=== PATIENT | male | born 1945 | race African-American/Black ===

== ENCOUNTER 2023-08-24 16:47 | Inpatient (IN) | payer OTHER ==
[~2023-08-24] VITALS: Ht 182.9 cm; Wt 74.8 kg
[2023-08-24 16:56] VITALS: BP_SYST 142; PULSE 91; RESP 18; TEMP 98; O2SAT 98
[2023-08-24 18:02] LABS: BASOPHILS % (AUTO) 0.1 % (0.0-2.0); HEMOGLOBIN 16.1 g/dL (14.0-18.0); LYMPHOCYTES # (AUTO) 0.6 K/uL (1.0-5.5); LYMPHOCYTES % (AUTO) 4.3 % (20.5-51.5); MEAN CORPUSCULAR HEMOGLOBIN 30 pg (27-31); MEAN CORPUSCULAR HGB CONC 32 % (32-36); MEAN CORPUSCULAR VOLUME 92 fL (79.0-98.0); MONOCYTES # (AUTO) 1.2 K/uL (0.0-1.0); MONOCYTES % (AUTO) 8.6 % (1.7-9.3); NEUTROPHILS # (AUTO) 12.5 K/uL (1.8-7.7); RED BLOOD CELL COUNT(AUTO) 5.44 MIL/uL (4.2-6.2); RED CELL DISTRIBUTION WIDTH 15.2 % (9.0-15.0); WHITE BLOOD COUNT (AUTO) 14.4 K/uL (4.8-10.8)
[2023-08-24 18:08] LABS: PLATELET COUNT (AUTO) 196 K/uL (130-430)
[2023-08-24 18:13] LABS: ANION GAP 14 (5-15); CALCIUM 8.9 mg/dL (8.4-11.0); CARBON DIOXIDE 23 mmol/L (23-29); CHLORIDE 101 mmol/L (98-107); CREATININE 2.57 mg/dL (0.55-1.30); GLUCOSE 115 mg/dL (74-106); POTASSIUM 4.1 mmol/L (3.5-5.1); SODIUM SERUM 138 mmol/L (136-145); UREA NITROGEN, BLOOD 53 mg/dL (8-21)
[2023-08-24 18:17] LABS: ALANINE AMINOTRANSFERASE 7 U/L (12-78); ALBUMIN 3.1 g/dL (3.4-4.8); ASPARTATE AMINOTRANSFERASE 22 U/L (10-37); LIPASE 16 U/L (73-393); TOTAL BILIRUBIN 2.1 mg/dL (0.0-1.0); TOTAL PROTEIN, SERUM 7.1 g/dL (6.4-8.3)
[2023-08-24] MEDS ORDERED: MORPHINE 4 MG INJ. 4 MG/ML VIAL IVP ONE (19:00)
[2023-08-24] MEDS ORDERED: PIPERACILLIN/TAZO 3.375 GM in NS 50 ML IV ONE (20:15)
[2023-08-24] MEDS ORDERED: NACL 0.9% 2,000 ML IV ONE (20:15)
[2023-08-24] MEDS ORDERED: PIPERACILLIN/TAZOBACTAM 3.375 GM/VIAL (ZOSYN) IV ONE ×2 (20:24→20:25)
[2023-08-24] MEDS ORDERED: PRO40 PO (20:43)
[2023-08-24] MEDS ORDERED: ASA81 PO (20:43)
[2023-08-24] MEDS ORDERED: CARB1TAB33 PO (20:43)
[2023-08-24] MEDS ORDERED: CYAN250010 PO (20:43)
[2023-08-24] MEDS ORDERED: MIRT-91 PO (20:43)
[2023-08-24 21:13] LABS: BILIRUBIN,URINE NEGATIVE (NEGATIVE); BLOOD, URINE 3+ (NEGATIVE); CLARITY/URINE Clear (CLEAR); COLOR,URINE YELLOW (YELLOW); GLUCOSE,URINE NEGATIVE (NEGATIVE); KETONES,URINE NEGATIVE (NEGATIVE); LEUKOCYTE ESTERASE ,URINE 3+ (NEGATIVE); NITRITE, URINE POSITIVE (NEGATIVE); PROTEIN URINE 1+ (NEGATIVE); UROBILINOGEN,URINE 0.2 (0.2-1.0)
[2023-08-24 21:21] LABS: BACTERIA,URINE MODERATE /HPF (None Seen)
[2023-08-25] MEDS ORDERED: MORPHINE 4 MG INJ. 4 MG/ML VIAL IVP PRN
[2023-08-25] MEDS ORDERED: TAMSULOSIN HCL 0.4 MG CAP PO ONE (08:15)
[2023-08-25 16:26] VITALS: BP_SYST 146; PULSE 74; RESP 18; TEMP 97.6; O2SAT 98
[2023-08-25 16:50] VITALS: BP_SYST 127; PULSE 78; RESP 17; TEMP 97.6
[2023-08-25] MEDS ORDERED: ONDANSETRON HCL 4 MG/2 ML VIAL IVP PRN ×2 (17:45)
[2023-08-25] MEDS ORDERED: NON-FORMULARY MEDICATION (Cyanocobalamin (Vitamin B-12) (Vitamin B12) 1,000 MCG) PO SCH (17:45)
[2023-08-25] MEDS ORDERED: NALOXONE HCL 0.4 MG/ML AMP (NARCAN) IVP PRN ×2 (17:45)
[2023-08-25] MEDS ORDERED: ACETAMINOPHEN 325 MG TABLET PO PRN ×2 (17:45→18:00)
[2023-08-25] MEDS ORDERED: LORazepam 2 MG/ML VIAL IVP PRN (17:45)
[2023-08-25] MEDS ORDERED: HYDROcodone/ACETAMIN 10-325 MG TAB PO PRN (17:45)
[2023-08-25] MEDS ORDERED: HYDROcodone/ACETAMIN 5-325 MG TAB (NORCO/ VICODIN) PO PRN (17:45)
[2023-08-25] MEDS ORDERED: ASPIRIN 81 MG TAB.CHEW PO ONE (18:00)
[2023-08-25] MEDS ORDERED: PIPERACILLIN/TAZO 3.375/DEX-IS 50 ML IV SCH (18:00)
[2023-08-25] MEDS ORDERED: PANTOPRAZOLE SODIUM 40 MG TAB PO ONE (18:15)
[2023-08-25] MEDS ORDERED: CYANOCOBALAMIN (VITAMIN B-12) 1,000 MCG TABLET PO ONE (18:15)
[2023-08-25 19:30] VITALS: O2SAT 95
[2023-08-25 20:00] VITALS: BP_SYST 149; PULSE 75; RESP 20; TEMP 98.8; O2SAT 95
[2023-08-25] MEDS: MIRTAZAPINE 15 MG TABLET PO SCH (20:47)
[2023-08-25] MEDS: CARBIDOPA/LEVODOPA 25/100 MG TABLET PO SCH (20:47)
[2023-08-25] MEDS: PIPERACILLIN/TAZOBACTAM 2.25 GM/ D5W 50 ML IV SCH ×2 (23:25)
[2023-08-26] VITALS (7 sets, daily range): BP systolic 109–171; PULSE 64–71; RESP 16–18; TEMP 96.9–98.2; O2SAT 96–98
[2023-08-26] MEDS: PIPERACILLIN/TAZOBACTAM 2.25 GM/ D5W 50 ML IV SCH ×2 (05:15)
[2023-08-26 06:34] LABS: BASOPHILS % (AUTO) 0.3 % (0.0-2.0); EOSINOPHILS # (AUTO) 0.2 K/uL (0.0-0.4); EOSINOPHILS % (AUTO) 2.7 % (0.0-4.0); HEMATOCRIT 44.6 % (36-54); HEMOGLOBIN 14.7 g/dL (14.0-18.0); LYMPHOCYTES # (AUTO) 0.8 K/uL (1.0-5.5); LYMPHOCYTES % (AUTO) 10.5 % (20.5-51.5); MEAN CORPUSCULAR HEMOGLOBIN 30 pg (27-31); MEAN CORPUSCULAR HGB CONC 33 % (32-36); MEAN CORPUSCULAR VOLUME 91 fL (79.0-98.0); MONOCYTES # (AUTO) 0.7 K/uL (0.0-1.0); NEUTROPHILS # (AUTO) 5.9 K/uL (1.8-7.7); NEUTROPHILS % (AUTO) 77.5 % (40.0-70.0); PLATELET COUNT (AUTO) 172 K/uL (130-430); RED BLOOD CELL COUNT(AUTO) 4.89 MIL/uL (4.2-6.2); RED CELL DISTRIBUTION WIDTH 15.3 % (9.0-15.0); WHITE BLOOD COUNT (AUTO) 7.6 K/uL (4.8-10.8)
[2023-08-26] MEDS ORDERED: cloNIDine HCL 0.2 MG TABLET PO PRN (06:45)
[2023-08-26 07:02] LABS: ANION GAP 9 (5-15); CALCIUM 8.5 mg/dL (8.4-11.0); CARBON DIOXIDE 25 mmol/L (23-29); CHLORIDE 110 mmol/L (98-107); CREATININE 1.75 mg/dL (0.55-1.30); GLUCOSE 74 mg/dL (74-106); PHOSPHORUS 3.5 mg/dL (2.7-4.5); POTASSIUM 3.4 mmol/L (3.5-5.1); SODIUM SERUM 144 mmol/L (136-145); UREA NITROGEN, BLOOD 46 mg/dL (8-21)
[2023-08-26] MEDS: PANTOPRAZOLE SODIUM 40 MG TAB PO SCH (08:31)
[2023-08-26] MEDS: ASPIRIN 81 MG TAB.CHEW PO SCH (08:31)
[2023-08-26] MEDS: TAMSULOSIN HCL 0.4 MG CAP PO SCH (08:31)
[2023-08-26] MEDS: CYANOCOBALAMIN (VITAMIN B-12) 1,000 MCG TABLET PO SCH (08:34)
[2023-08-26] MEDS: CARBIDOPA/LEVODOPA 25/100 MG TABLET PO SCH ×3 (09:15→21:15)
[2023-08-26] MEDS: metroNIDAZOLE 250 mg/NS 50 ML IV SCH ×2 (13:24→21:15)
[2023-08-26] MEDS: MIRTAZAPINE 15 MG TABLET PO SCH (21:15)
[2023-08-27 01:01] VITALS: BP_SYST 152; PULSE 65; RESP 18; TEMP 97.9; O2SAT 99
[2023-08-27] MEDS: metroNIDAZOLE 250 mg/NS 50 ML IV SCH ×2 (05:23→14:03)
[2023-08-27] MEDS ORDERED: METR-343 PO (10:36)
[2023-08-27] MEDS ORDERED: TAMS0.4C96 PO (10:36)
[2023-08-27] MEDS ORDERED: CIPR250T4 PO (10:36)
[2023-08-27 11:00] VITALS: O2SAT 96
[2023-08-27] MEDS: ASPIRIN 81 MG TAB.CHEW PO SCH (11:36)
[2023-08-27] MEDS: TAMSULOSIN HCL 0.4 MG CAP PO SCH (11:37)
[2023-08-27] MEDS: CARBIDOPA/LEVODOPA 25/100 MG TABLET PO SCH ×2 (11:37→14:59)
[2023-08-27] MEDS: PANTOPRAZOLE SODIUM 40 MG TAB PO SCH (11:37)
[2023-08-27] MEDS: CYANOCOBALAMIN (VITAMIN B-12) 1,000 MCG TABLET PO SCH (11:37)
[2023-08-27 12:00] VITALS: BP_SYST 157; PULSE 74; RESP 18; TEMP 97.8; O2SAT 99
[2023-08-27 14:12] VITALS: BP_SYST 138; PULSE 62; RESP 18; TEMP 97; O2SAT 97
[2023-08-27 14:14] VITALS: BP_SYST 138; PULSE 62; RESP 18; TEMP 97; O2SAT 97
[2023-08-27 16:00] VITALS: BP_SYST 116; PULSE 62; RESP 18; TEMP 97.5; O2SAT 98
== END 2023-08-27 17:51 | disposition home or self-care (01) | DRG 871 ==
LOC: SED 16:47 → STU 21:14 → SMU 08-26 23:16
PROVIDERS: ADMIT Preventive Medicine Preventive Medicine/Occupational Environmental Medicine; ATTEND Preventive Medicine Preventive Medicine/Occupational Environmental Medicine
PROC: 0T9B70Z Drainage of Bladder with Drainage Device, Via Natural or Artificial Opening (ICD-10-PCS; principal; 2023-08-24)
DX: A41.9 Sepsis, unspecified organism (principal); N17.0 Acute kidney failure with tubular necrosis; N13.6 Pyonephrosis; K62.89 Other specified diseases of anus and rectum; N40.1 Benign prostatic hyperplasia with lower urinary tract symptoms; E80.6 Other disorders of bilirubin metabolism; E88.09 Other disorders of plasma-protein metabolism, not elsewhere classified; K21.9 Gastro-esophageal reflux disease without esophagitis; K76.9 Liver disease, unspecified; I12.9 Hypertensive chronic kidney disease with stage 1 through stage 4 chronic kidney disease, or unspecified chronic kidney disease; N18.9 Chronic kidney disease, unspecified; D72.829 Elevated white blood cell count, unspecified; K59.00 Constipation, unspecified; Z79.82 Long term (current) use of aspirin; Z79.899 Other long term (current) drug therapy
CPT/HCPCS: 36415; 70450-TC; 74018; 76376; 76770; 80048; 80053; 81000; 82962; 83605; 83690; 83735; 84100; 85025; 86886; 86900; 86901; 87040; 87086; 96365; 99285; G0378; J0696; J2270; J2543; J3490; J7060

== ENCOUNTER 2024-03-16 15:29 | Emergency (ER) | payer OTHER ==
[~2024-03-16] VITALS: Ht 182.9 cm; Wt 69.4 kg
[~2024-03-16 15:29] MED LIST: ASA81 PO; CARB1TAB33 PO; CIPR250T4 PO; CYAN250010 PO; METR-343 PO; MIRT-91 PO; PRO40 PO; TAMS0.4C96 PO
[2024-03-16 15:48] VITALS: BP_SYST 131; PULSE 73; RESP 18; TEMP 97.9; O2SAT 99
[2024-03-16 18:15] LABS: BASOPHILS # (AUTO) 0.1 K/uL (0.0-0.2); EOSINOPHILS % (AUTO) 0.7 % (0.0-4.0); HEMATOCRIT 46.5 % (36-54); HEMOGLOBIN 15.5 g/dL (14.0-18.0); LYMPHOCYTES # (AUTO) 0.9 K/uL (1.0-5.5); LYMPHOCYTES % (AUTO) 16.1 % (20.5-51.5); MEAN CORPUSCULAR HEMOGLOBIN 30 pg (27-31); MEAN CORPUSCULAR HGB CONC 33 % (32-36); MEAN CORPUSCULAR VOLUME 91 fL (79.0-98.0); MONOCYTES # (AUTO) 0.3 K/uL (0.0-1.0); MONOCYTES % (AUTO) 5.6 % (1.7-9.3); NEUTROPHILS # (AUTO) 4.2 K/uL (1.8-7.7); NEUTROPHILS % (AUTO) 76.6 % (40.0-70.0); PLATELET COUNT (AUTO) 189 K/uL (130-430); RED BLOOD CELL COUNT(AUTO) 5.11 MIL/uL (4.2-6.2); RED CELL DISTRIBUTION WIDTH 14.5 % (9.0-15.0); WHITE BLOOD COUNT (AUTO) 5.5 K/uL (4.8-10.8)
[2024-03-16 18:32] LABS: PROTHROMBIN TIME 10.8 SECS (9.5-12.5)
[2024-03-16 19:42] LABS: ANION GAP 11 (5-15); CALCIUM 8.9 mg/dL (8.4-11.0); CARBON DIOXIDE 25 mmol/L (23-29); CHLORIDE 107 mmol/L (98-107); CREATINE KINASE, TOTAL 116 U/L (39-308); CREATININE 1.68 mg/dL (0.55-1.30); GLUCOSE 117 mg/dL (74-106); POTASSIUM 4.3 mmol/L (3.5-5.1); SODIUM SERUM 143 mmol/L (136-145); UREA NITROGEN, BLOOD 31 mg/dL (8-21)
[2024-03-16] MEDS ORDERED: HYDR-3917 PO (20:00)
[2024-03-16] MEDS ORDERED: ACET-2634 PO (20:00)
[2024-03-16 20:05] VITALS: BP_SYST 131; PULSE 73; RESP 18; TEMP 97.9; O2SAT 99
== END 2024-03-16 20:05 | disposition home or self-care (01) ==
LOC: SED 15:29
DX: S30.0XXA Contusion of lower back and pelvis, initial encounter (principal); Z79.899 Other long term (current) drug therapy; W01.0XXA Fall on same level from slipping, tripping and stumbling without subsequent striking against object, initial encounter; Y93.89 Activity, other specified; Y92.89 Other specified places as the place of occurrence of the external cause; Y99.8 Other external cause status
CPT/HCPCS: 36415; 72192-TC; 80048; 82550; 83605; 85025; 85610; 85730; 99284